=== PATIENT | female | born 1985 | race Caucasian/White ===

== ENCOUNTER 2018-07-07 08:57 | Outpatient (CLI) | payer BC ==
--- NOTE | 2018-07-07 10:16 | ULT ---
SONOGRAM LEFT BREAST LIMITED: Date: 07/07/18 HISTORY: Left breast lump. No abnormal mammographic findings. FINDINGS: Sonographic evaluation of the superolateral aspect of the left breast in the region of palpable ankit rn shows a focal island of breast parenchyma. No solid or cystic masses. IMPRESSION: BI-RADS Category 2 - Benign findings. Suggest routine mammographic follow-up. POS: [facility]
== END 2018-07-07 08:58 | disposition home or self-care (01) ==
LOC: BICMAMMO 08:57
PROVIDERS: ATTEND Obstetrics & Gynecology
DX: N63.20 Unspecified lump in the left breast, unspecified quadrant (principal); N64.89 Other specified disorders of breast
CPT/HCPCS: 77066; G0279